=== PATIENT | female | born 1990 | race Caucasian/White ===

== ENCOUNTER 2024-09-14 17:40 | Emergency (ER) | payer BC, SELFPAY ==
--- OUTSIDE RECORDS SUMMARY | 2024-09-14 17:43 | XMS_ITS | Clinical Summary ---
Author Organization [facility] Address Formerly [place] [address] Care Team Providers Care Intermodal Truck Driver Name Role Phone Giancarlo Joy MD Primary Care Provider [phone] Social History Tobacco Use Types Packs/Day Years Used Date Smoking Tobacco: Never Assessed Comments Unknown Sex and Gender Information Value Date Recorded Sex Assigned at Not on file Legal Sex Female 6:59 PM CDT Gender Identity Not on file Sexual Orientation Not on file Plan of Treatment Health Maintenance Due Date Last Done Comments Cervical Cancer Screening Pa p Smear (Age 30 to 64) Every 3 Years 1992 Annual Physical 09/05/1995 Hepatitis C 2010 Hepatitis B Vaccines (1 of 3 - 19+ 3-dose series) 09/05/2011 Cervical Cancer Screening Pa p with HPV Testing (Age 30 to 64) Every 5 Years 2022 Cervical Cancer Screening wi th HPV 2022 COVID-19 Vaccine (2023-2 5 season) 2023 DTaP, Tdap and Td Vaccines ( 2 - Td or Tdap) 09/06/2024 09/06/2014 Pneumococcal Vaccine: Pediatrics (0 to 5 Years) and At-Risk Patients (6 to 49 Years) Aged Out 09/06/2014 No longer eligible b ased on patient's age to complete this topic HPV Vaccines Completed 01/08/2016, 08/23/2015, 06/12/2015 Meningococcal B Vaccine Aged Out No l onger eligible based on patient's age to complete this topic Meningococcal Vaccine Aged Out No [place] ben[place] eligible based on patient's age to complete this topic RSV Immunizations Under 20 Months Aged Out No longer eligible b ased on patient's age to complete this [place] [address] [facility] Care Teams Intermodal Truck Driver Relationship Specialty Start Date End Date Giancarlo Joy MD [address] [place] [address] PCP - General 11/28/11
--- OUTSIDE RECORDS SUMMARY | 2024-09-14 17:43 | XMS_ITS | Encounter Summary ---
Author Organization [facility] Address [address] [place] [address] Phone Care Team Providers Care Financial Operations Analyst Name Role Phone Jumana Oviedo APRN, MANAGER WELDING Primary Care Provider [phone] Cortez Lopez MD Unavailable [phone] Encounter Details Date Type Department Care Team (Latest Contact Info) Description 10/14/2019 Transcribe Orders [facility] Preop/Pacu II [address] [place] [address] Cortez Lopez MD [address] [place] [address] Preop testing (Primary Dx) Social History Tobacco Use Types Packs/Day Years Used Date Smoking Tobacco: Never Smokeless Tobacco: Never Comments Unknown Sex and Gender Information Value Date Recorded Sex Assigned at Not on file Legal Sex Female 3:49 PM CDT Gender Identity Not on file Sexual Orientation Not on file COVID-19 Exposure Response Date Recorded In the last month, have you been in contact with someone who was confirmed or suspected to have Coronavirus / COVID-19? No / Unsure 10/10/2019 11:10 AM CDT documented as of this encounter Plan of Treatment Not on file documented as of this encounter Results * UR TEST QUAL (10/24/2019 5:59 AM CDT) PREG TEST,MONOCLONAL Negative 10/24/2019 6:31 AM CDT [facility] Comment:Urine specimens with low specific gravity may not contain senior outside sales representative levels of HCG. If is still suspected, a first morning urine specimen should be collected 48 hours later and tested. Urine Non-Phlebotomy Collection / Unknown 10/24/2019 5:59 AM CDT 10/24/2019 6:18 AM CDT us Cortez Lopez MD URINE ORDERABLES Final Re sult [facility] [address] [place] [address], [place] documented in this encounter Visit Diagnoses Diagnosis Preop testing- Primary Preoperative examination, unspecified documented in this encounter Care Teams Financial Operations Analyst Relationship Specialty Start Date End Date Jumana Oviedo, GILBERTO, MANAGER WELDING [address] [place] [address] PCP - General Advanced Practice Nurse 09/13/19 Cortez Lopez MD [address] [place] [id number] Consulting Physician Orthopaedic Surgery 11/08/19 documented as of this encounter
--- OUTSIDE RECORDS SUMMARY | 2024-09-14 17:43 | XMS_ITS | Clinical Summary ---
Author Organization [facility] Address [address] [place] [address] Phone Care Team Providers Care Clinical Specialist Medical Device Name Role Phone Jumana Oviedo APRN, PROCESS VALIDATION ENGINEER Primary Care Provider [phone] Cortez Lopez MD Unavailable [phone] Allergies Active Allergy Reactions Criticality Noted Date Comments Dust Mite Extract Itching Low 09/13/2019 Molds & Smuts Itching Low 09/13/2019 Penicillins Rash Low 09/13/2019 Medications ketoconazole (NIZORAL) 2 % Shampoo APPLY UTD 9 Active clindamycin (CLEOCIN T) 1 % Lotion Apply twice daily 9 Active cetirizine (ZYRTEC) 10 MG Tablet Take 10 mg by mouth. Active PULMICORT FLEXHALER 90 MCG/ACT AEROSOL POWDER, BREATH ACTIVATED 0 Active albuterol 108 (90 Base) MCG/ACT Aerosol Solution take 2 Puffs by inhalation. Active Multiple Vitamin (MULTI-VITAMIN DAILY PO) Take 1 Tab by mouth. Active Adapalene 0.3 % Gel Apply nightly 9 Active budesonide (PULMICORT) 90 MCG/ACT AEROSOL POWDER, BREATH ACTIVATED take 1 Puff by inhalation. 0 Active polyvinyl alcohol-povidon e (Clear Eyes All Seasons) 5-6 MG/ML Solution Place 2 Drops in affected eye(s) daily. Active ondansetron (Zofran) 4 MG Tablet Take 1 Tab by mouth every 8 hours as needed for Nausea - 1st line. 12 Tab 08/17/202 0 Active oxyCODONE (ROXICODONE) 5 MG Tablet Take 1 Tab by mouth every 6 hours as needed for Moderate or more severe pain. 20 Tab 0 Active Additional Information Patient not taking.Reported on 11/08/2019 azithromycin (ZITHROMAX) 250 MG Tablet 1 Active Clindamycin Phos-Benzoyl Perox 1-5 % Gel 0 Active Active Problems Problem Noted Date Diagnosed Date Mild intermittent asthma without complication Seasonal allergic rhinitis due to pollen 018 Conductive hearing loss, bilateral 02/18/2016 Social History Tobacco Use Types Packs/Day Years Used Date Smoking Tobacco: Never Smokeless Tobacco: Never Alcohol Use Standard Drinks/Week Comments Yes 0 (1 standard drink = 0.6 oz pur e alcohol) occas Comments Unknown Sex and Gender Information Value Date Recorded Sex Assigned at Not on file Legal Sex Female 3:49 PM CDT Gender Identity Not on file Sexual Orientation Not on file Last Filed Vital Signs Vital Sign Reading Time Taken Comments Blood Pressure 115/71 10/24/2019 12:37 PM CDT Pulse 75 10/24/2019 11:30 AM CDT Temperature 36.7 C (98.1 F) 10/24/2019 12:37 PM CDT Respiratory Rate 16 10/24/2019 12:37 PM CDT Oxygen Saturation 100% 10/24/2019 12:37 PM CDT Inhaled Oxygen Concentration - - Weight 69.6 kg (153 lb 8 oz) 05/08/2020 4:07 PM SITE COORDINATOR Height 162.6 cm (5' 4) 05/08/2020 4:07 PM SITE COORDINATOR Body Mass Index 26.35 05/08/2020 4:07 PM SITE COORDINATOR Plan of Treatment Health Maintenance Due Date Last Done Comments Hepatitis C Virus (HCV) Screening 1992 TdaP Immunization 1992 Human Papillomavirus (HPV) Immunization (1 - 3-dose series) 09/05/2007 Hepatitis B Immunization (1 of 3 - 19+ 3-dose series) 09/05/2011 Pneumococcal Immunization Combined (1 of 2 - PCV) 09/05/2011 Pap Smear 2013 Cervical Cancer Screening (CCS) 2022 HPV/Cotest 2022 SARS-COV-2 Immunization ( season) 2023 03/07/2021, 04/03/2020, 03/06/2020 Influenza Immunization (#1) 11/07/202412/07, 01/03/2018, 01/03/2017 Respiratory Syncytial Virus (RSV) Immunization (Adult) (1 - 1-dose 75+ series) 09/05/2067 Meningococcal Immunization (ACWY) Aged Out No longer eligible b ased on patient's age to complete this topic Rotavirus Immunization Aged Out No lo nger eligible based on patient's age to complete this topic Medical Devices Implanted Type Area Intelligence Consultant Device Identifier Shelf Expiration Date Model / Serial / Lot O[employer]ield Suture 1.4mm Flex Senior Label Specialist [employer] An[employer] - [id number] Implanted:Qty: 3 on 10/24/2019 by Cortez Lopez MD at [facility] IMPLANT Right: Hip [facility] 02/16/2021 [id number] / / [id number] [place] [address] [facility] Care Teams Clinical Specialist Medical Device Relationship Specialty Start Date End Date Jumana Oviedo, VOLUNTEER MANAGER, PROCESS VALIDATION ENGINEER [address] [facility] [address] [place] [address] PCP - General Advanced Practice Nurse 09/13/19 Cortez Lopez MD [address] [place] [address] Consulting Physician Orthopaedic Surgery 11/08/19
--- NOTE | 2024-09-14 17:45 | ED.EAR ---
HPI - Ear Problem General Chief complaint: Ear Stated complaint: LT Ear Pain Time Seen by Provider: 09/14/24 17:50 Source: patient Mode of arrival: ambulatory Limitations: no limitations History of Present Illness HPI Narrative: Lashaun is a 34-year-old female patient presenting to the clinic today with complaints of left ear pain, decreased hearing, and drainage coming from the ear. States she frequently gets external ear infections. No fevers, chills, body aches. No URI symptoms. States she has very small ear canals and when she gets water in her ears she is high risk for infection. Related Data Allergies Allergy/AdvReac Type Severity Reaction Status Date / Time Penicillins Allergy Mild Rash Verified 09/14/24 17:47 Review of Systems Review of Systems: Pertinent positives per HPI. Patient denies any fever, chills, rash, headache, visual changes, dizziness, cough, runny nose, sore throat, shortness of breath, chest pain, palpitations, nausea, vomiting, diarrhea, constipation, abdominal pain, or any urinary issues. PMFSH Comments At the time of my signature, I reviewed and agree with the nursing past medical, surgical, social, and family history. There is no relevant family history pertinent to the patient complaint. Exam Narrative: General: Well-developed, well nourished, in no apparent distress Head: Normocephalic, atraumatic Eyes: Pupils equally round and reactive to light bilaterally, EOM intact, sclera and conjunctive clear, no discharge, lids normal Ears: Right TM intact and clear, right ear canal red, swollen, with yellow otorrhea, left ear canal swollen almost shut with white otorrhea, tenderness to palpation over the tragus bilaterally and pulling of the pinnas, grossly hearing normal. Nose: Nares patent, no discharge, no inflammation, no sinus tenderness. Mouth: Oropharynx without lesions or masses, good dentition, MMM. Neck: Supple, trachea midline, no enlargement of anterior or posterior cervical nodes, no thyroid masses or goiter palpable. Cardio: Regular rate and rhythm, s1 and s2 normal, no murmur appreciated. Resp: Clear to auscultation bilaterally anteriorly and posteriorly, no rhonchi, rales, wheezing or rubs Course Course Emergency Course: Portions of this record may have been created with voice recognition software. Level of Care: Express Care Visit Vital Signs Vital signs: Vital Signs Temperature 37.4 C 09/14/24 17:48 Pulse Rate 98 09/14/24 17:48 Respiratory Rate 18 09/14/24 17:48 Blood Pressure 108/60 09/14/24 17:48 Pulse Oximetry 99 09/14/24 17:48 Oxygen Delivery Room Air 09/14/24 17:48 Temperature 37.4 C 09/14/24 17:48 Pulse Rate 98 09/14/24 17:48 Respiratory Rate 18 09/14/24 17:48 Blood Pressure 108/60 09/14/24 17:48 Pulse Oximetry 99 09/14/24 17:48 Oxygen Delivery Room Air 09/14/24 17:48 Vital signs reviewed Medical Decision Making MDM Narrative Medical decision making narrative: At the time of visit patient is resting comfortably on the exam table. Patient appears to be nontoxic. Plan: I suspect patient has bilateral otitis externa. Prescription for ofloxacin ear drops were sent to the pharmacy. Left ear canal almost swollen shut completely. Ear wick was inserted using alligator forceps. Patient tolerated well. Supportive measures were discussed with the patient and they voiced understanding discharge instructions and agrees to treatment plan. Return precautions reviewed Differential Diagnosis Differential Diagnosis: Otitis media, otitis externa, eustachian tube dysfunction, cerumen impaction, upper respiratory infection, serous otitis Vital Signs Vital Signs: Vital Signs Temperature 37.4 C 09/14/24 17:48 Pulse Rate 98 09/14/24 17:48 Respiratory Rate 18 09/14/24 17:48 Blood Pressure 108/60 09/14/24 17:48 Pulse Oximetry 99 09/14/24 17:48 Oxygen Delivery Room Air 09/14/24 17:48 Temperature 37.4 C 09/14/24 17:48 Pulse Rate 98 09/14/24 17:48 Respiratory Rate 18 09/14/24 17:48 Blood Pressure 108/60 09/14/24 17:48 Pulse Oximetry 99 09/14/24 17:48 Oxygen Delivery Room Air 09/14/24 17:48 Discharge Plan Discharge Clinical Impression: Otitis externa Qualifiers: Otitis externa type: diffuse Chronicity: acute Laterality: bilateral Qualified Code(s): H60.313 - Diffuse otitis externa, bilateral Patient Disposition: Home Condition: Stable Instructions: Antibiotic Form, Swimmer's Ear (ED) Additional Instructions: Take any prescribed medications only as directed- ofloxacin ear drops Use drops in both ears Ear wick was inserted into the left ear canal. Tylenol/motrin as needed for pain May use heating pad to alleviate pain If you get recurrent ear infections it may be warranted to follow up with ENT. Follow up with your PCP in 3-5 days if symptoms persist. Patient Language: [place] Prescriptions: New ofloxacin 0.3 % drops 5 drp otic (ear) BID 7 Days Qty: 5 0RF Follow-up/Referrals: PHYSICIAN,AGRICULTURAL RESEARCH TECHNICIAN [Primary Care Provider] - Time of Disposition: 17:58 Quality NIHSS Nursing Documentation ED NIHSS nursing documentation: reviewed/agree
[2024-09-14 17:48] VITALS: BP 108/60; PULSE 98; RESP 18; TEMP 37.4; O2SAT 99
== END 2024-09-14 18:02 | disposition home or self-care (01) ==
PROVIDERS: Emergency Provider Nurse Practitioner Family
DX: H60.313 Diffuse otitis externa, bilateral (principal); J45.909 Unspecified asthma, uncomplicated
CPT/HCPCS: 99203; G0463